=== PATIENT | male | born 1980 | race Caucasian/White ===

== ENCOUNTER 2017-10-28 08:32 | Day surgery (SDC) | payer OTHER, SELFPAY ==
[2017-10-23 14:54] VITALS: BMI 31.6
[2017-10-28] VITALS (7 sets, daily range): BP systolic 111–148; BP diastolic 59–90; PULSE 53–733; RESP 10–16; TEMP 36–36.6; O2SAT 95–98; BMI 31.1
[2017-10-28] MEDS: LACTATED RINGERS 1,000 ML 42 ML IV (09:44)
--- NOTE | 2017-10-28 11:02 | PM.PREOP ---
Pre-operative Note Interval Note Pre-op Check: Yes History & Physical Reviewed by Physician and Yes Exam Performed Changes: No
--- NOTE | 2017-10-28 11:10 | P.OP_ITS ---
Operative Date/Time/Diagnoses Date of procedure: 10/28/17 Pre-op diagnosis: Right acromioclavicular joint arthritis Post-op diagnosis: same Procedure & Clinicians Procedure: Right open distal clavicle excision Same procedure as scheduled: Yes Indications: 37-year-old male with isolated right superior shoulder pain for 2 years. His history physical exam and imaging studies were consistent with acromioclavicular joint arthritis. He received 100% pain relief from an acromioclavicular injection but had return of all of his symptoms. We discussed continued non operative treatment versus operative treatment. The risks of surgery were discussed to include pain, bleeding, infection, damage to nearby structures, lack of symptom relief, need for further procedures, and anesthetic risks. The goal of surgery is pain relief. The decision was made to not do any further diagnostic procedure because the symptoms were isolated. He signed a written consent form. Surgeon: Jared Sandoval Director Of Catering Sales: Maria Elena Toth Click Yes if Unassisted: No Anesthesia Type: General and Peripheral nerve block Operative Notes Findings: Right Acromioclavicular joint arthritis. Closure Type: primary Specimen(s): none sent Estimated Blood Loss (mL): 10 Blood products transfused: none Tourniquet time (min): 0 Procedure in detail: The patient was met in the preoperative hold area on the day of the procedure and the operative extremity was signed. Consent was verified. He desired to proceed. Regional anesthesia was performed. He is brought to the operating room and surrendered to anesthesia. Once general anesthesia been obtained he was placed in the beach chair position all bony prominences were well padded. We confirmed that his neck was in a relaxed position and that he was stabilized with a strap and tape. An examination under anesthesia was performed and he was found to be stable in all planes with full range of motion. He was then prepped and draped in the standard fashion. Surgical time-out was held where we confirmed the patient procedure, identity, allergies, laterality. All were in agreement we proceeded. A 5 cm longitudinal incision was made overlying the acromioclavicular joint. Hemostasis was obtained with electrocautery. I sharply dissected down to the capsular and fascial layer and made full-thickness skin flaps. I then longitudinally opened the capsule and freed the capsular tissue off the distal clavicle and the acromion. Hohmann retractors were then placed around the distal clavicle. A rongeur was used to remove the articular disc. Utilizing the sagittal saw I then excised 1 cm of the distal clavicle. A rasp was used ease all sharp edges. I placed my small finger into the wound and found there to be adequate space with the arm fully brought across the body. Satisfied with this I then irrigated copiously and closed in a layered fashion with 0 Vicryl in the capsular tissues 2 0 Vicryl in the dermis and a running Monocryl in the skin. Steri-Strips were then applied. A sterile dressing was placed and the arm was placed into a sling. He was awakened and transferred to the recovery room. Complications: none Condition: stable Disposition: same day surgery Plan for aftercare: The dressing may be removed in 5 days. Sling should be worn at all times for 2 weeks. He may remove it for showering and elbow range of motion. Pendulum exercises can be done for the 1st 2 weeks. He will then begin gradual range of motion and strengthening increases as guided by physical therapy.
[2017-10-28] MEDS: MIDAZOLAM 2 MG/2 ML VIAL IV (11:22)
[2017-10-28] MEDS: CEFTRIAXONE 2 GM/50 ML FROZ.PIGGY IV (11:39)
--- NOTE | 2017-10-28 11:39 | SUR.PREOP ---
Block start time [1124] . Monitoring initiated and maintained throughout procedure. Oxygen and medications given per anesthesiologist instructions. Patient remained stable throughout procedure, no adverse reactions noted. Block end time []1127 .
--- NOTE | 2017-10-28 12:14 | SUR.OPER ---
Beach chair with [place] shoulder positioner. Lower body on padded OR bed. Head in foam padded head cradle, secured with straps. Non-operative arm secured <90 degrees abduction. Pillow under knees. Safety belt at thigh. Cloth tape over blanket over lower legs.
--- NOTE | 2017-10-28 12:27 | P.PCN_ITS ---
Procedures Date/Time Date of procedure: 10/28/17 Time of procedure: 11:30 Nerve Block Time out performed: Yes Local anesthetic used: other (15mL 0.5 opivacaine, 5mL 2* idocaine) Location of anesthetic used: interscalene Amount of anesthesia used (mL): 20 Nerve blocks: brachial plexus (interscalene) Procedure successful: Yes Patient tolerated procedure: well Complications: none Additional comments: Right Brachial plexus nerve block for post operative pain management. Risks and benefits discussed, including bleeding, infection, intravascular injection, nerve damage, block failure. Standard ASA monitors, NC O2. Pt supine. Chloroprep site preparation, sterile technique. Brachial plexus identified with US guidance, traced from supraclavicular to interscalene. 1mL 2% lidocaine skin wheal. 22g x 50mm Pajunk advanced with in- plane US guidance to brachial plexus. Negative aspiration. LA injected with intermittent negative aspiration. Good LA spread noted on US. No pain, no paraesthesia. Pt tolerated procedure well. Vital signs stable.
[2017-10-28] MEDS: fentaNYL 100 MCG/2 ML INJ 50 MCG IV ×2 (12:55→13:02)
[2017-10-28] MEDS: BENZOCAINE/MENTHOL 1 LOZ PKT 1 EACH PO (12:56)
[2017-10-28] MEDS: OXYCODONE/ACETAMINOPHEN 5/325 TABLET 2 TAB PO (13:12)
== END 2017-10-28 13:50 | disposition home or self-care (01) ==
PROVIDERS: PCP General Practice; Visit Provider Orthopaedic Surgery
PROC: (CPT 23120; principal; 2017-10-28 10:45)
DX: M19.011 Primary osteoarthritis, right shoulder (principal); G89.18 Other acute postprocedural pain; I10 Essential (primary) hypertension; F17.210 Nicotine dependence, cigarettes, uncomplicated
CPT/HCPCS: 23120; 64450; J0696; J1100; J2250; J2405; J2704; J3010

== ENCOUNTER → 2024-07-21 12:46 | Outpatient (CLI) | payer OTHER, SELFPAY | PROVIDERS: Referring Provider Orthopaedic Surgery; Visit Provider Orthopaedic Surgery | DX: M25.531 Pain in right wrist (principal) | CPT/HCPCS: 95886; 95912 ==

== ENCOUNTER → 2024-08-01 08:50 | Outpatient (CLI) | payer OTHER, SELFPAY ==
[2024-08-01 10:29] LABS: Free T4, Direct Thyroxine 1.01 ng/dL (0.78-2.19)
[2024-08-01 10:43] LABS: Thyroid Stimulating Hormone 0.324 uIU/mL (0.47-4.68)
== END ==
PROVIDERS: Referring Provider Chiropractor; Visit Provider Chiropractor
DX: I10 Essential (primary) hypertension (principal); E03.9 Hypothyroidism, unspecified
CPT/HCPCS: 36415; 84439; 84443; 84481

== ENCOUNTER 2025-01-15 21:18 | Emergency (ER) | payer OTHER, SELFPAY ==
[2025-01-15 21:55] VITALS: BP 121/77; PULSE 68; RESP 18; TEMP 36.4; O2SAT 98; BMI 27.3
--- NOTE | 2025-01-15 22:03 | DI.RAD.S_ITS ---
PROCEDURE: XR HIP W PEL IF DONE RT 2V INDICATIONS: pain without injury TECHNIQUE: AP pelvis with lateral view(s) of the right hip(s). COMPARISON: [facility], CR, XR PELVIS WITH LATERAL HIP LEFT, 10/16/2020, 13:57. FINDINGS: Bones: No fractures or dislocations. Pelvic ring appears intact. No suspicious bony lesions. Soft tissues: The visualized bowel gas pattern is normal. No suspicious soft tissue calcifications. Vasectomy clips. IMPRESSION: No acute bony abnormality. Consider follow-up MRI. Dictated by: Daryl George M.D. on 01/15/2025 at 23:30 Approved by: Daryl George M.D. on 01/15/2025 at 23:31
--- NOTE | 2025-01-16 00:42 | ED.EXTPRO ---
HPI - Extremity Problem General Chief complaint: Extremity Problem,Nontraumatic Stated complaint: severe pn in r hip, Time Seen by Provider: 01/15/25 22:11 Source: patient Mode of arrival: Ambulatory History of Present Illness HPI Narrative: 45-year-old gentleman presents this morning with right-sided hip pain that took him over a few hours just to get up and get dressed to come here to be evaluated. Denies any trauma, back pain, numbness, tingling, down the legs, or bladder incontinence, fever, chills, chest pain, shortness breath, or any recent falls have caused this. Nothing makes it better or worse. He was told few years ago he would probably need a hip replacement given how bad his arthritis was a few years ago. Other than what is stated 14 point review of system is negative. Related Data Home Medications ?Medication ?Instructions ?Recorded ?Confirmed lisinopril 10 mg tablet 10 mg PO DAILY 10/23/17 10/28/17 pantoprazole 40 mg tablet,delayed 40 mg PO DAILY 10/23/17 10/28/17 release Previous Rx's ?Medication ?Instructions ?Recorded hydrocodone 5 mg-acetaminophen 325 1 tab PO Q4-6H PRN pain #20 tabs 10/20/25 mg tablet hydrocodone 5 mg-acetaminophen 325 1 tab PO Q4-6H PRN pain #20 tabs 10/20/25 mg tablet Allergies Allergy/AdvReac Type Severity Reaction Status Date / Time No Known Drug Allergies Allergy Verified 01/15/25 21:55 Review of Systems Review of Systems ROS Unobtainable: All systems reviewed & are unremarkable except as noted in HPI and below Patient History Medical History (Updated 01/16/25 @ 01:11 by Leonel Olivarez DO) Arthritis HTN (hypertension) GERD (gastroesophageal reflux disease) Surgical History (Updated 10/23/17 @ 15:02 by Wilda Dominguez RN) History of nasal surgery Hx of tonsillectomy Social History household members: spouse Smoking Status: Current every day smoker alcohol intake: current Smoking Status: Current every day smoker tobacco type: vaping alcohol intake frequency: a few times a week Exam Narrative Exam Narrative: GENERAL: [45] year old patient appears stated age. Well-developed patient, in mild distress. HEAD: Atraumatic. Normocephalic. EYES: Pupils equal round and reactive. Extraocular motions intact. No scleral icterus. No injection or drainage. EXTREMITIES: R hip dec ROM in abduction, adduction, flexion and extension. No obvious deformed BACK: Nontender without deformity or crepitance. No flank tenderness. NEURO: AOx3. SKIN: No rash or erythema of visible areas Initial Vital Signs Initial Vital Signs: Vital Signs Temperature 97.6 F 01/15/25 21:55 Pulse Rate 68 01/15/25 21:55 Respiratory Rate 18 01/15/25 21:55 Blood Pressure 121/77 01/15/25 21:55 Pulse Oximetry 98 01/15/25 21:55 Oxygen Delivery Method Room Air 01/15/25 21:55 Course Orders Ordered: ED Orders 01/15/25 22:03 XR hip w pel RT 2V Stat Vital Signs Vital signs: Vital Signs - 8 hr 01/15/25 21:55 Temperature 97.6 F Pulse Rate 68 Respiratory Rate 18 Blood Pressure 121/77 Pulse Oximetry 98 Oxygen Delivery Method Room Air MDM - Extremity (Nontraumatic) Imaging Data Extremity x-ray #1: Radiologist's Impression: [address] [address] XRay Report Signed Patient: Antony Norman MR#: [id number] : 1980 Acct:[id number] Age/Sex: 45 / M Date of Service: 01/15/25 Loc: ED Accession Number: [id number] Procedure: XR hip w pel RT 2V Ordering Provider: Leonel Olivarez D.O. PROCEDURE: XR HIP W PEL IF DONE RT 2V INDICATIONS: pain without injury TECHNIQUE: AP pelvis with lateral view(s) of the right hip(s). COMPARISON: [facility], CR, XR PELVIS WITH LATERAL HIP LEFT, 10/16/2020, 13:57. FINDINGS: Bones: No fractures or dislocations. Pelvic ring appears intact. No suspicious bony lesions. Soft tissues: The visualized bowel gas pattern is normal. No suspicious soft tissue calcifications. Vasectomy clips. IMPRESSION: No acute bony abnormality. Consider follow-up MRI. [facility] Narrative Medical decision making narrative: All lab work, vital signs, nurse triage note, medication list, previous ER visits, and all imaging studies reviewed. Patient given ibuprofen and [place] here. X-ray showed no acute bony abnormality. Differential diagnosis arthritis strain fracture dislocation. DC home on [place] and to follow up with [facility] Discharge Plan Departure Patient Disposition: Home Clinical Impression: Acute hip pain Instructions: DI for Hip Pain Activity Restrictions/Additional Instructions: Return with new or worsening symptoms. Take medicine as directed. Follow up with [facility] referral. Prescriptions: New hydrocodone-acetaminophen 5-325 mg tablet 1 tab PO Q4-6H PRN (Reason: pain) Qty: 20 0RF hydrocodone-acetaminophen 5-325 mg tablet 1 tab PO Q4-6H PRN (Reason: pain) Qty: 20 0RF No Action pantoprazole 40 mg Tablet,Delayed Release (Dr/Ec) 40 mg PO DAILY lisinopril 10 mg Tablet 10 mg PO DAILY Referrals: Provider[facility]anty [Primary Care Provider, Family Practice] Stand Alone Forms: Patient Portal/API
[2025-01-16] MEDS: IBUPROFEN 400 MG TABLET 800 MG PO (01:41)
== END 2025-01-16 01:45 | disposition home or self-care (01) ==
PROVIDERS: Emergency Provider Family Medicine
DX: M25.551 Pain in right hip (principal)
CPT/HCPCS: 73502; 99283